=== PATIENT | male | born 1970 | race Caucasian/White ===

== ENCOUNTER 2016-06-13 19:13 | Emergency (ER) | payer OTHER ==
[~2016-06-13] VITALS: Ht 172.7 cm; Wt 77.1 kg
[2016-06-13 19:13] VITALS: BP 149/92
[2016-06-13 20:04] LABS: KETONES,URINE Negative (NEGATIVE); LEUKOCYTE ESTERASE ,URINE Moderate (NEGATIVE); PH,URINE 6.5 (5.0-8.0)
[2016-06-13 20:07] LABS: ADD UA MICROSCOPIC YES
[2016-06-13] MEDS ORDERED: LIDOCAINE /MPF 1% VIAL 5 ML VIAL ONE (20:15)
[2016-06-13] MEDS ORDERED: CEFTRIAXONE 500 MG VIAL ONE (20:15)
[2016-06-13] MEDS ORDERED: AZITHROMYCIN 250 MG TABLET ONE (20:15)
[2016-06-13 20:20] LABS: ADD URINE CULTURE YES; WBC,URINE 51-80 /HPF (0-3)
[2016-06-13] MEDS ORDERED: CEFTRIAXONE 500 MG VIAL IM ONE (20:30)
[2016-06-13] MEDS ORDERED: AZITHROMYCIN 250 MG TABLET PO ONE (20:30)
== END 2016-06-13 21:01 | disposition home or self-care (01) ==
LOC: ER 19:15
DX: Z20.2 Contact with and (suspected) exposure to infections with a predominantly sexual mode of transmission (principal); N34.2 Other urethritis; B37.42 Candidal balanitis
CPT/HCPCS: 81000-TC; 87086-TC; 87491; 87591; A4606; J0696; J3490; Z7610